=== PATIENT | female | born 1980 | race Two or more races ===

== ENCOUNTER 2018-04-28 05:56 | Emergency (ER) | payer SELFPAY ==
[~2018-04-28] VITALS: Ht 167.6 cm; Wt 72.6 kg
[2018-04-28 06:13] VITALS: BP 118/80
--- NOTE | 2018-04-28 06:20 | NUR ---
TO BED 3 AMBULATORY C/O "FLU LIKE" SYMPTOMS X 2 DAYS. PT AAOX4 NO ACUTE DISTRESS NOTED, RESP EVEN AND UNLABORED. PENDING ER MD DIXON.
--- NOTE | 2018-04-28 06:25 | NUR ---
ROLANDO WILKS AT BEDSIDE TO ZACK BISHOP.
== END 2018-04-28 06:50 | disposition home or self-care (01) ==
LOC: ER 06:00
DX: R09.81 Nasal congestion (principal); H92.03 Otalgia, bilateral; R51 Headache; R05 Cough; K21.9 Gastro-esophageal reflux disease without esophagitis; M19.90 Unspecified osteoarthritis, unspecified site; Z98.890 Other specified postprocedural states
CPT/HCPCS: 99281; A4606; Z7610; Z7502

== ENCOUNTER 2021-12-14 17:56 | Emergency (ER) | payer MEDICAID ==
[~2021-12-14] VITALS: Ht 167.6 cm; Wt 68.0 kg
[2021-12-14 20:34] VITALS: BP 120/66
[2021-12-14] MEDS ORDERED: IBUP-1955 PO (20:36)
[2021-12-14] MEDS ORDERED: ACET325C7 PO (20:36)
--- NOTE | 2021-12-14 20:58 | NUR ---
Patient discharged to home in stable condition. Written and verbal after care instructions given. Patient verbalizes understanding of instruction.
== END 2021-12-14 20:58 | disposition home or self-care (01) ==
LOC: ER 18:11
DX: U07.1 COVID-19 (principal); G43.909 Migraine, unspecified, not intractable, without status migrainosus; K21.9 Gastro-esophageal reflux disease without esophagitis; M19.90 Unspecified osteoarthritis, unspecified site; Z79.1 Long term (current) use of non-steroidal anti-inflammatories (NSAID)